=== PATIENT | male | born 1955 | race American Indian/Alaskan Native ===

== ENCOUNTER 2021-08-05 01:16 | Emergency (ER) | payer SELFPAY ==
--- NOTE | 2021-08-05 05:31 | Event Note ---
ED Screening Note ED Screening Note: 66-year-old male presents emerged department complaining of left-sided chest pain which is worse with deep breaths and coughing of unknown etiology. For normal parameters hematochezia, no nausea, no vomiting, no presyncope the chest pain originated in the back and now has progressed to the front. He reports a history of hypertension but is currently untreated due to the lack of insurance. This initial assessment/diagnostic orders/clinical plan/treatment(s) is/are subject to change based on patients health status, clinical progression and re- assessment by fellow clinical providers in the ED. Further treatment and workup at subsequent clinical providers discretion. Patient/guardian urged not to elope from the ED as their condition may be serious if not clinically assessed and managed. Initial orders include: EKG, laboratory findings labs and chest pain work-up
--- NOTE | 2021-08-05 05:56 | XRay Report ---
CHEST 2 VIEWS INDICATION / CLINICAL INFORMATION: Chest Pain. COMPARISON: None available. FINDINGS: SUPPORT DEVICES: None. HEART / MEDIASTINUM: The heart size and pulmonary vasculature are normal. The aorta is normal in melissa debra. LUNGS / PLEURA: No significant pulmonary or pleural abnormality. No pneumothorax. ADDITIONAL FINDINGS: No significant additional findings. IMPRESSION: No acute findings. Signer Name: Neo Lisa MD Signed: 08/05/2021 5:52 AM Workstation Name: [id number]
[2021-08-05 06:04] LABS: Basophils # (Auto) 0.1 K/mm3 (0.0-0.1); Basophils % (Auto) 0.8 % (0.0-1.8); Eosinophils % (Auto) 0.4 % (0.0-4.3); Hematocrit 44.6 % (35.5-45.6); Hemoglobin 14.6 gm/dl (11.8-15.2); Lymphocytes # (Auto) 2.5 K/mm3 (1.2-5.4); Lymphocytes % (Auto) 30.2 % (13.4-35.0); Mean Corpuscular HGB Conc 33 % (32-34); Mean Corpuscular Volume 89 fl (84-94); Monocytes # (Auto) 0.4 K/mm3 (0.0-0.8); Monocytes % (Auto) 4.5 % (0.0-7.3); Platelet Count 311 K/mm3 (140-440); Red Blood Count 5.02 M/mm3 (3.65-5.03); Red Cell Distribution Width 14.4 % (13.2-15.2)
[2021-08-05 06:34] LABS: Alanine Aminotransferase 17 units/L (7-56); Albumin 4.9 g/dL (3.9-5); BUN/Creatinine Ratio 13; Blood Urea Nitrogen 10 mg/dL (9-20); Calcium 9.9 mg/dL (8.4-10.2); Hemolysis Index 28
--- NOTE | 2021-08-05 06:38 | Emergency Department Report ---
ED General Adult HPI - General Chief complaint: Back Pain/Injury Stated complaint: BACK PAIN Time Seen by Provider: 08/05/21 06:23 Source: patient Mode of arrival: Ambulatory Limitations: No Limitations - History of Present Illness Initial comments: Patient presents with a 1 week history of intermittent chest pain and back pain. He states that Thursday he started having some left-sided chest pain and left- sided back pain. It seemed to get better on Thursday. He had a slight episode on Thursday. He states that and Thursday and Thursday were well. Yesterday he states that he was having terrible pain. He decided to come in this morning because of the severity of the pain. He described as a severe sharp and stabbing pain in the left scapular area and left lateral chest area. This is not pleuritic. It is not positional. There is no trauma associated with this. He does keep pointing to an area in the left trapezius that has a lipoma. He does not know how long the swelling is been there. He believes that the pain is related to that. Again, there is no trauma. Pain is not exertional. - Related Data Previous Rx's Medication Instructions Recorded Last Taken Type Naproxen [Naprosyn] 500 mg PO BID PRN #20 tablet 08/05/21 Unknown Rx Allergies Allergy/AdvReac Type Severity Reaction Status Date / Time codeine AdvReac Unknown Verified 08/05/21 01:21 meperidine AdvReac Unknown Verified 08/05/21 01:21 ED Review of Systems ROS: Stated complaint: BACK PAIN Other details as noted in HPI Comment: All other systems reviewed and negative Constitutional: denies: fever Eyes: denies: vision change ENT: denies: throat pain Respiratory: denies: cough Cardiovascular: as per HPI Endocrine: denies: unexplained weight loss Gastrointestinal: denies: abdominal pain Genitourinary: denies: dysuria Musculoskeletal: denies: back pain Skin: denies: rash Neurological: denies: numbness Hematological/Lymphatic: denies: easy bruising ED Past Medical Hx - Past Medical History Hx Hypertension: Yes Hx Heart Attack/AMI: No - Surgical History Past Surgical History?: No - Family History Family history: hypertension - Social History Smoking Status: Never Smoker - Medications Home Medications: Home Medications Medication Instructions Recorded Confirmed Last Taken Type Naproxen [Naprosyn] 500 mg PO BID PRN #20 tablet 08/05/21 Unknown Rx ED Physical Exam - General Limitations: No Limitations, Other (Pulse ox noted and normal) General appearance: alert, in no apparent distress - Head Head exam: Present: atraumatic, normocephalic, normal inspection - Eye Eye exam: Present: normal appearance, EOMI. Absent: scleral icterus - ENT ENT exam: Present: normal exam, normal orophraynx - Neck Neck exam: Present: normal inspection. Absent: meningismus - Respiratory Respiratory exam: Present: normal lung sounds bilaterally. Absent: respiratory distress - Cardiovascular Cardiovascular Exam: Present: regular rate, normal rhythm - GI/Abdominal GI/Abdominal exam: Present: soft. Absent: tenderness - Back Exam Back exam: Present: other (Lipoma just superior medial to the left scapula which is nontender and without erythema). Absent: CVA tenderness (R), CVA tenderness (L) - Neurological Exam Neurological exam: Present: alert, oriented X3, CN II-XII intact, normal gait, reflexes normal. Absent: motor sensory deficit - Psychiatric Psychiatric exam: Present: normal affect, normal mood - Skin Skin exam: Present: warm, dry ED Course Vital Signs 08/05/21 08/05/21 01:18 10:13 Temperature 98.5 F 98.1 F Pulse Rate 91 H 64 Respiratory 18 18 Rate Blood Pressure 186/85 179/84 [Right] O2 Sat by Pulse 100 100 Oximetry - Reevaluation(s) Reevaluation #1: 08/05/21 06:38 EKG was noted. IV labs ordered. Analgesics ordered. Old records reviewed. Reevaluation #2: 08/05/21 07:43 Repeat troponin is pending. Reevaluation #3: 08/05/21 10:20 Labs are noted and the patient was discharged ED Medical Decision Making - Lab Data Result diagrams: 08/05/21 05:41 08/05/21 05:41 - EKG Data -: EKG Interpreted by Me - EKG Data 08/05/21 06:38 0121-EKG shows normal sinus rhythm at 74. Intervals normal including a MD of 185, QRS of 92, and QT corrected of 1-27. Patient has no ST elevation to suggest STEMI. There is no ST depression suggestive of ischemia. There does not appear to be any old EKG for comparison. - Radiology Data Radiology results: report reviewed - Medical Decision Making Patient presented with left chest pain of unclear etiology. He has had a troponin that is negative x2. He has a sufficiently low heart score that would allow for discharge. He does not have any pleuritic component that would suggest PE. There is no radiographic evidence of pneumonia or pneumothorax. Patient did not have STEMI or NSTEMI based on his current presentation. He did have a lipoma but it is unlikely that is the cause of his pain. This could be related to some sort of inflammatory process. Regardless, there was no wide mediastinum or pulse deficit to suggest aortic dissection. There is no trauma to suggest rib fracture. Outpatient evaluation would be most appropriate. Critical Care Time: No Critical care attestation.: If time is entered above; I have spent that time in minutes in the direct care of this critically ill patient, excluding procedure time. ED Disposition Clinical Impression: Left-sided chest pain Left-sided thoracic back pain Qualifiers: Chronicity: acute Qualified Code(s): M54.6 - Pain in thoracic spine Lipoma Qualifiers: Lipoma location: trunk Qualified Code(s): D17.1 - Benign lipomatous neoplasm of skin and subcutaneous tissue of trunk Disposition: 01 HOME / SELF CARE / HOMELESS Is pt being admited?: No Condition: Stable Instructions: Nonspecific Chest Pain, Adult, Lipoma Removal, Nonspecific Chest Pain, Adult, [id number] Additional Instructions: Drink plenty water. Return for problems. Follow-up with a surgeon as discussed to have the lipoma removed. Follow-up with your regular doctor or the referral physician for further evaluation of your chest pain. Prescriptions: Naproxen [Naprosyn] 500 mg PO BID PRN #20 tablet PRN Reason: Pain, Moderate (4-6) Referrals: ANJUM GONZÁLES [Other] - 3-5 Days BLAINE SHERIDAN DO [Staff Physician] - 3-5 Days
[2021-08-05] MEDS ORDERED: KETOROLAC 30 MG/1 ML INJ IV ONE (07:41)
[2021-08-05 10:14] VITALS: BP 179/84
--- NOTE | 2021-08-06 11:04 | Electrocardiograph Report ---
[facility] Test Date: 2021-08-05 Test Time: 01:21:45 Pat Name: GREGORIO MELENDEZ Department: Room: Gender: M Van Driver Helper: NURSE : 1955 Requested By: KT RUVALCABA Order Number: [id number] Reading MD: Jack Owen Measurements Intervals [place] Rate: 74 P: 20 [place]: 185 QRS: -3 QRSD: 92 T: 57 QT: 385 QTc: 427 Interpretive Statements Sinus rhythm Probable left ventricular hypertrophy Anterior Q waves, possibly due to LVH No previous ECG available for comparison Electronically Signed On 08-06-2021 11:04:05 EST by Jack Owen
== END 2021-08-05 10:14 | disposition home or self-care (01) ==
LOC: ED 01:16
DX: R07.89 Other chest pain (principal); M54.6 Pain in thoracic spine; D17.1 Benign lipomatous neoplasm of skin and subcutaneous tissue of trunk; I10 Essential (primary) hypertension
CPT/HCPCS: 36415; 71046; 80053; 84484; 85025; 93005; 99283